=== PATIENT | female | born 1950 | race Asian ===

== ENCOUNTER 2018-12-14 08:49 | Outpatient (CLI) | payer MEDICARE, MEDICAID ==
--- NOTE | 2018-12-14 09:27 | ULT ---
ULTRASOUND ABDOMEN LIMITED: (RIGHT UPPER QUADRANT) DATE: 12/14/2018 HISTORY: 68-year-old female with right upper quadrant abdominal pain FINDINGS: Gallbladder: Normal wall thickness. No gallstones or sludge identified. No pericholecystic fluid. Liver: Normal parenchymal echogenicity. Right kidney: No hydronephrosis. Pancreas: Obscured by shadowing from bowel gas. Common duct caliber: 4 mm. IMPRESSION: 1) no pathology identified. 2) pancreas not visualized.
== END 2018-12-14 08:50 | disposition home or self-care (01) ==
LOC: SCSULT 08:49
PROVIDERS: ATTEND Family Medicine
DX: R10.2 Pelvic and perineal pain (principal)
CPT/HCPCS: 76700

== ENCOUNTER 2019-03-08 10:56 | Outpatient (CLI) | payer MEDICARE, MEDICAID ==
--- NOTE | 2019-03-08 15:44 | CT ---
CT OF RIGHT ELBOW PERFORMED WITHOUT CONTRAST ENHANCEMENT: 03/08/19 HISTORY: Traumatic injury to elbow. 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 There is some minimal spur formation of the coronoid process. There is no evidence of any fracture. The radial capitellar joint space is normal. Radial h ead is intact. I do not appreciate any soft tissue abnormalities. IMPRESSION: 1. No evidence of fracture. 2. Minimal arthritic changes of the elbow. POS: [facility]
== END 2019-03-08 10:57 | disposition home or self-care (01) ==
LOC: BICCT 10:56
DX: S59.901A Unspecified injury of right elbow, initial encounter (principal); M19.021 Primary osteoarthritis, right elbow

== ENCOUNTER 2021-05-03 09:21 | Outpatient (CLI) | payer MEDICARE, MEDICAID | END 2021-05-03 09:22 | disposition home or self-care (01) | LOC: ULT 09:21 | PROVIDERS: ATTEND Physician Assistant Medical | DX: R79.89 Other specified abnormal findings of blood chemistry (principal) | CPT/HCPCS: 76705 ==